=== PATIENT | male | born 1995 | race Caucasian/White ===

== ENCOUNTER 2020-02-10 06:32 | Emergency (ER) | payer OTHER, SELFPAY ==
[2020-02-10 06:33] VITALS: BP 131/75; PULSE 75; RESP 18; TEMP 36.3; O2SAT 100; BMI 19.5
--- NOTE | 2020-02-10 07:00 | ED.VISSUMM ---
- ER Visit Summary Date of Service: 02/10/20 Chief Complaint: Back pain History of Present Illness: The patient is a 24 M who presents with back pain that became worse today. Patient states he started having some back pain last night. Patient denies any trauma or injury. Patient describes the pain as sharp. Patient states the pain is over the lower thoracic and lumbar area. Patient states it is worse with breathing sometimes. Patient states nothing seems to help. Patient denies any radiation of the pain. Patient denies any bowel or bladder changes. Patient denies any saddle anesthesia. Physical Examination: Vital signs are stable. Patient is afebrile. Patient is in no acute distress. Musculoskeletal exam reveals tenderness and spasm of the lower thoracic and lumbar paraspinal muscles. There is some mild midline tenderness. There is no edema or ecchymosis. There is no bony crepitance or step-off. Range of motion was limited in all motions of the thoracic and lumbar spine secondary to pain. Strength is 5/5 bilateral in the lower extremities. There are no sensory deficits noted. Deep tendon reflexes are 2/4 bilaterally in the lower extremities. Emergency Department Course and Treatment: Patient was given injection of Toradol here. Patient was given a dose of oral Valium. Patient was given prescriptions for Naprosyn and Valium. Patient was instructed to use ice to the area. Patient was instructed to follow-up with his primary care physician in 3 to 5 days. Patient understood and was agreeable with the plan. All questions were answered. Disposition: Discharge home Impression: 1. Acute thoracic strain 2. Acute lumbar strain This note was generated with [employer] dictation software. It may contain incorrect words, spelling, and punctuation that were not noted in review of the chart prior to signing ED Disposition - Plan for ED Patient: Disposition: Home or Assisted Living Diagnosis: Acute thoracic myofascial strain, Acute lumbar myofascial strain Instructions: ED Spasm Back No Trauma, ED LUMBAR SPRAIN/STRAIN Prescriptions: Naproxen [Naprosyn] 500 mg PO BID PRN #20 tab Prescription Printed Diazepam [Valium] 5 mg PO Q8H PRN PRN #10 tab PRN Reason: Muscle Spasm Prescription Printed Referrals: Care Physician,No Primary [Primary Care Provider] -
[2020-02-10] MEDS: Ketorolac 60 MG/2 ML Vial IM (07:20)
[2020-02-10] MEDS: diazePAM 5 MG Tablet PO (07:20)
[2020-02-10 07:49] VITALS: RESP 15
== END 2020-02-10 07:52 | disposition home or self-care (01) ==
PROVIDERS: Emergency Provider Emergency Medicine
DX: S29.012A Strain of muscle and tendon of back wall of thorax, initial encounter (principal); S39.012A Strain of muscle, fascia and tendon of lower back, initial encounter; X58.XXXA Exposure to other specified factors, initial encounter; Y93.89 Activity, other specified; Y92.89 Other specified places as the place of occurrence of the external cause; Y99.8 Other external cause status
CPT/HCPCS: 96372; 99283